=== PATIENT | female | born 1990 | race Caucasian/White ===

== ENCOUNTER 2021-02-22 15:05 | Emergency (ER) | payer OTHER ==
[2021-02-22 15:13] VITALS: BP 115/78; PULSE 108; TEMP 97.2; BMI 36.0
[2021-02-22 16:58] LABS: HCG,QUALITATIVE URINE Positive
[2021-02-22 17:05] LABS: URINE APPEARANCE Clear; URINE BILIRUBIN Negative (NEGATIVE); URINE COLOR Yellow; URINE GLUCOSE (UA) Negative (NEGATIVE); URINE KETONE Negative (NEGATIVE); URINE LEUK ESTERASE 1+ (NEGATIVE); URINE NITRITE Negative (NEGATIVE); URINE PROTEIN Negative (NEGATIVE); URINE UROBILINOGEN 0.2 mg/dL (0.2-1.0)
[2021-02-22 17:07] LABS: CALCIUM 8.8 mg/dL (8.5-10.1)
[2021-02-22 17:08] LABS: ALBUMIN 3.8 g/dl (3.4-5.0)
[2021-02-22 17:10] LABS: BASO % 0.3 % (0-2.0); EOS % 0.5 % (0-4.5); HEMATOCRIT 38.6 % (32.4-45.2); HEMOGLOBIN 12.9 GM/dL (10.7-15.3); LYMPH % 26.1 % (8-40); MCH 30.6 pg (25.7-33.7); MCHC 33.4 g/dl (32.0-36.0); MEAN CELL VOLUME 91.6 fl (80-96); MEAN PLT VOLUME 9.4 fl (7.5-11.1); MONO % 12.4 % (3.8-10.2); NEUT % 60.7 % (42.8-82.8); PLATELET COUNT 249 10^3/uL (134-434); RBC 4.21 M/mm3 (3.60-5.2); RDW 14.2 % (11.6-15.6); WHITE BLOOD COUNT 6.7 K/mm3 (4.0-10.0)
[2021-02-22 17:11] LABS: CREATININE 0.7 mg/dL (0.55-1.3)
[2021-02-22 17:12] LABS: BILIRUBIN,TOTAL 0.3 mg/dL (0.2-1); TOT PROT 8.1 g/dl (6.4-8.2)
[2021-02-22 18:03] LABS: URINE BACTERIA MODERATE /hpf (NEGATIVE); URINE RBC 0-3 /hpf (0-4)
[2021-02-22 18:59] LABS: INR 1.07 (0.83-1.09); PROTHROMBIN TIME (PATIENT) 13.1 SEC (9.7-13.0)
[2021-02-22 19:02] LABS: ACTIVATED PTT 28.6 SECONDS (25.2-36.5)
== END 2021-02-22 19:37 | disposition left against medical advice (07) ==
LOC: JER 15:05
DX: R10.2 Pelvic and perineal pain (principal); M79.652 Pain in left thigh; O00.80 Other ectopic pregnancy without intrauterine pregnancy
CPT/HCPCS: 36415; 76817-TC; 80053; 81003; 83690; 84702; 84703; 85025; 85610; 85730; 86850; 86900; 86901; 87086; 99284-25; C9803; U0003; U0005

== ENCOUNTER 2021-02-24 17:31 | Emergency (ER) | payer OTHER ==
[2021-02-24 17:36] VITALS: BP 110/80; PULSE 93; TEMP 98.2; BMI 36.0
[2021-02-24] MEDS ORDERED: METHOTREXATE SODIUM/PF 25 MG/ML VIAL IM ONE (20:33)
== END 2021-02-24 22:08 | disposition home or self-care (01) ==
LOC: JERFT 17:31
PROC: 3E033GC Introduction of Other Therapeutic Substance into Peripheral Vein, Percutaneous Approach (ICD-10-PCS; principal; 2021-02-24)
DX: O00.90 Unspecified ectopic pregnancy without intrauterine pregnancy (principal)
CPT/HCPCS: 36415; 76817-TC; 84702; 99284-25; J9260

== ENCOUNTER 2021-02-27 18:49 | Emergency (ER) | payer OTHER ==
[2021-02-27 18:54] VITALS: BP 109/74; PULSE 107; TEMP 97.9; BMI 36.0
== END 2021-02-28 | disposition home or self-care (01) ==
LOC: JER 18:49
DX: O00.102 Left tubal pregnancy without intrauterine pregnancy (principal)
CPT/HCPCS: 36415; 76817-TC; 84702; 99284-25

== ENCOUNTER 2021-03-04 12:31 | Emergency (ER) | payer OTHER ==
[2021-03-04 12:42] VITALS: TEMP 97.6; BMI 36.0
[2021-03-04] MEDS ORDERED: KETOROLAC TROMETHAMINE 30 MG/1 ML VIAL IM ONE (13:21)
[2021-03-04] MEDS ORDERED: KETOROLAC TROMETHAMINE 30 MG/1 ML VIAL ONE (13:30)
[2021-03-04 13:36] LABS: BASO % 0.4 % (0-2.0); EOS % 0.4 % (0-4.5); HEMATOCRIT 34.7 % (32.4-45.2); LYMPH % 28.1 % (8-40); MCH 31.3 pg (25.7-33.7); MCHC 34.5 g/dl (32.0-36.0); MEAN CELL VOLUME 90.7 fl (80-96); MEAN PLT VOLUME 9.3 fl (7.5-11.1); MONO % 11.6 % (3.8-10.2); NEUT % 59.5 % (42.8-82.8); PLATELET COUNT 266 10^3/uL (134-434); RBC 3.82 M/mm3 (3.60-5.2); RDW 13.9 % (11.6-15.6); WHITE BLOOD COUNT 7.5 K/mm3 (4.0-10.0)
[2021-03-04 14:26] LABS: EPI CELLS >36 /uL (0-25.1); HYALINE CASTS 1 /uL (0-3.1); URINE APPEARANCE CLEAR; URINE BACTERIA 209 /uL (0-1359); URINE BILIRUBIN NEGATIVE (NEGATIVE); URINE COLOR YELLOW; URINE GLUCOSE (UA) NEGATIVE (NEGATIVE); URINE KETONE NEGATIVE (NEGATIVE); URINE LEUK ESTERASE 1+ (NEGATIVE); URINE NITRITE NEGATIVE (NEGATIVE); URINE PROTEIN TRACE (NEGATIVE); URINE RBC 1341 /uL (0-23.9); URINE WBC 90 /uL (0-25.8)
== END 2021-03-04 15:45 | disposition home or self-care (01) ==
LOC: JER 12:31
PROC: 3E0233Z Introduction of Anti-inflammatory into Muscle, Percutaneous Approach (ICD-10-PCS; principal; 2021-03-04)
DX: O00.202 Left ovarian pregnancy without intrauterine pregnancy (principal); R10.2 Pelvic and perineal pain
CPT/HCPCS: 36415; 76817-TC; 81003; 84702; 85025; 87086; 99284-25

== ENCOUNTER 2021-05-29 03:21 | Emergency (ER) | payer OTHER ==
[2021-05-29] MEDS ORDERED: ACETAMINOPHEN 1000 MG/100 ML VIAL IVPB ONE (03:54)
[2021-05-29 03:57] VITALS: BMI 37.4
[2021-05-29] MEDS ORDERED: ACETAMINOPHEN INJECTION 100 ML IVPB ONE (04:01)
[2021-05-29] MEDS ORDERED: SODIUM CHLORIDE 0.9% 500 ML INFUS.BAG IV ONE (04:12)
[2021-05-29 04:29] LABS: BASO % 0.5 % (0-2.0); EOS % 0.4 % (0-4.5); HEMOGLOBIN 11.5 GM/dL (10.7-15.3); LYMPH % 20.8 % (8-40); MCHC 34.9 g/dl (32.0-36.0); MEAN CELL VOLUME 91.5 fl (80-96); MEAN PLT VOLUME 9.1 fl (7.5-11.1); MONO % 8.7 % (3.8-10.2); NEUT % 69.6 % (42.8-82.8); PLATELET COUNT 252 10^3/uL (134-434); RBC 3.61 M/mm3 (3.60-5.2); RDW 13.4 % (11.6-15.6); WHITE BLOOD COUNT 9.7 K/mm3 (4.0-10.0)
[2021-05-29 04:36] LABS: INR 1.16 (0.83-1.09); PROTHROMBIN TIME (PATIENT) 13.6 SEC (9.7-13.0)
[2021-05-29 04:39] LABS: ACTIVATED PTT 27.5 SECONDS (25.2-36.5)
[2021-05-29 04:50] LABS: CHLORIDE 104 mmol/L (98-107); SODIUM 137 mmol/L (136-145)
[2021-05-29 04:52] LABS: CALCIUM 9.1 mg/dL (8.5-10.1)
[2021-05-29 04:53] LABS: ALBUMIN 3.2 g/dl (3.4-5.0); ANION GAP 7 MMOL/L (8-16); BLOOD UREA NITROGEN 7.9 mg/dL (7-18); CO2 26 mmol/L (21-32); GLUCOSE,RANDOM 130 mg/dL (74-106)
[2021-05-29 04:56] LABS: CREATININE 0.7 mg/dL (0.55-1.3); SGOT/AST 22 U/L (15-37); SGPT/ALT 27 U/L (13-61)
[2021-05-29 04:57] LABS: BILIRUBIN,TOTAL 0.6 mg/dL (0.2-1); TOT PROT 7.4 g/dl (6.4-8.2)
[2021-05-29 04:59] LABS: ALK PHOS 88 U/L (45-117)
[2021-05-29] MEDS ORDERED: METHOTREXATE SODIUM/PF 25 MG/ML VIAL IM ONE (06:21)
[2021-05-29 07:25] VITALS: TEMP 98.4
[2021-05-29 08:12] LABS: EPI CELLS 12 /uL (0-25.1); HYALINE CASTS 1 /uL (0-3.1); PH,URINE 6.5 (5.0-8.0); URINE APPEARANCE CLEAR; URINE BACTERIA 22 /uL (0-1359); URINE BILIRUBIN NEGATIVE (NEGATIVE); URINE COLOR YELLOW; URINE GLUCOSE (UA) NEGATIVE (NEGATIVE); URINE KETONE NEGATIVE (NEGATIVE); URINE LEUK ESTERASE NEGATIVE (NEGATIVE); URINE NITRITE NEGATIVE (NEGATIVE); URINE PROTEIN NEGATIVE (NEGATIVE); URINE RBC 74 /uL (0-23.9); URINE UROBILINOGEN 0.2 mg/dL (0.2-1.0); URINE WBC 4 /uL (0-25.8)
[2021-05-29] MEDS ORDERED: KETOROLAC TROMETHAMINE 30 MG/1 ML VIAL IVPUSH ONE (08:27)
[2021-05-29] MEDS ORDERED: KETOROLAC TROMETHAMINE 30 MG/1 ML VIAL ONE (08:30)
[2021-05-29 08:59] VITALS: BP 102/63; PULSE 86
== END 2021-05-29 08:45 | disposition home or self-care (01) ==
LOC: JER 03:21
PROC: 3E023GC Introduction of Other Therapeutic Substance into Muscle, Percutaneous Approach (ICD-10-PCS; principal; 2021-05-29)
PROC: 3E033GC Introduction of Other Therapeutic Substance into Peripheral Vein, Percutaneous Approach (ICD-10-PCS; principal; 2021-05-29)
DX: O00.90 Unspecified ectopic pregnancy without intrauterine pregnancy (principal); Z3A.01 Less than 8 weeks gestation of pregnancy
CPT/HCPCS: 36415; 76830-TC; 80053; 81003; 82550; 83605; 84484; 84702; 85025; 85610; 85730; 86850; 86900; 86901; 87086; 99291; C9803; J0131; J9260; U0003; U0005

== ENCOUNTER 2021-12-18 16:59 | Emergency (ER) | payer OTHER ==
[2021-12-18 17:15] VITALS: BP 124/85; PULSE 104; TEMP 98.3; BMI 31.4
[2021-12-18] MEDS ORDERED: BACITRACIN 15 GM TUBE TOPICAL OINTMENT ONE (18:11)
== END 2021-12-18 18:20 | disposition home or self-care (01) ==
LOC: JER 16:59
DX: T81.31XA Disruption of external operation (surgical) wound, not elsewhere classified, initial encounter (principal)
CPT/HCPCS: 99283-25

== ENCOUNTER 2022-08-31 07:54 | Inpatient (IN) | payer OTHER ==
[2022-08-31 08:28] VITALS: BMI 31.3
[2022-08-31 10:13] LABS: BASO % 0.4 % (0-2.0); EOS % 0.1 % (0-4.5); HEMATOCRIT 36.7 % (32.4-45.2); LYMPH % 11.1 % (8-40); MCH 29.7 pg (25.7-33.7); MCHC 32.7 g/dl (32.0-36.0); MEAN PLT VOLUME 9.6 fl (7.5-11.1); MONO % 8.2 % (3.8-10.2); NEUT % 80.2 % (42.8-82.8); PLATELET COUNT 278 10^3/uL (134-434); RBC 4.03 M/mm3 (3.60-5.2); RDW 13.5 % (11.6-15.6); WHITE BLOOD COUNT 12.1 K/mm3 (4.0-10.0)
[2022-08-31 10:19] LABS: EPI CELLS >36 /uL (0-25.1); HYALINE CASTS 0 /uL (0-3.1); PH,URINE 6.5 (5.0-8.0); URINE APPEARANCE CLOUDY; URINE BACTERIA 332 /uL (0-1359); URINE BILIRUBIN NEGATIVE (NEGATIVE); URINE COLOR YELLOW; URINE GLUCOSE (UA) NEGATIVE (NEGATIVE); URINE KETONE TRACE (NEGATIVE); URINE LEUK ESTERASE NEGATIVE (NEGATIVE); URINE NITRITE NEGATIVE (NEGATIVE); URINE PROTEIN 1+ (NEGATIVE); URINE WBC 30 /uL (0-25.8)
[2022-08-31 10:45] LABS: PROTHROMBIN TIME (PATIENT) 1.7 SEC (9.7-13.0); URINE RBC 24.2 /uL (0-23.9)
[2022-08-31 10:46] LABS: ACTIVATED PTT 32.4 SECONDS (25.2-36.5); INR 1.1 (0.83-1.09)
[2022-08-31 10:58] LABS: CALCIUM 8.8 mg/dL (8.5-10.1)
[2022-08-31 10:59] LABS: BLOOD UREA NITROGEN 17.6 mg/dL (7-18)
[2022-08-31 11:02] LABS: CREATININE 0.7 mg/dL (0.55-1.3)
[2022-08-31 11:03] LABS: BILIRUBIN,TOTAL 0.7 mg/dL (0.2-1)
[2022-08-31 11:04] LABS: TOT PROT 7.4 g/dl (6.4-8.2)
[2022-08-31] MEDS ORDERED: SODIUM CHLORIDE 1,000 ML IV STA (13:46)
[2022-08-31] MEDS ORDERED: morphine CARPU-JECT 4 MG/1 ML DISP.SYRIN IVPUSH ONE (13:46)
[2022-08-31] MEDS ORDERED: LACTATED RINGERS SOLUTION 1000 ML INFUS.BAG IV ONE (13:47)
[2022-08-31] MEDS ORDERED: ONDANSETRON 4 MG/2 ML VIAL IVPUSH ONE (13:47)
[2022-08-31] MEDS ORDERED: morphine SULFATE 4 MG/ML VIAL ONE (13:48)
[2022-08-31] MEDS ORDERED: ONDANSETRON 4 MG/2 ML VIAL ONE (13:49)
[2022-08-31] MEDS ORDERED: PROPOFOL 20 ML ONE (15:21)
[2022-08-31] MEDS ORDERED: MIDAZOLAM HCL 2 MG/2 ML SINGLE DOSE VIAL ONE (15:22)
[2022-08-31] MEDS ORDERED: SUCCINYLCHOLINE CHLORIDE 200 MG/10 ML SYRINGE ONE (15:22)
[2022-08-31] MEDS ORDERED: ceFAZolin SODIUM 1 GM VIAL IVPB ONE (15:45)
[2022-08-31] MEDS ORDERED: ACETAMINOPHEN INJECTION 100 ML IVPB ONE (15:57)
[2022-08-31] MEDS ORDERED: ROCURONIUM BROMIDE 50 MG/5 ML SYRINGE ONE (16:22)
[2022-08-31] MEDS ORDERED: NEOSTIGMINE METHYLSULFATE 0.5 MG/1 ML - 10 ML MDV ONE (17:03)
[2022-08-31] MEDS ORDERED: ONDANSETRON 4 MG/2 ML VIAL IVPUSH PRN ×2 (17:07→17:38)
[2022-08-31] MEDS ORDERED: IBUPROFEN 800 MG/8 ML IJ IVPB PRN (17:07)
[2022-08-31] MEDS ORDERED: oxyCODONE HCL 5 MG TABLET PO PRN ×2 (17:07→17:14)
[2022-08-31] MEDS ORDERED: IBUPROFEN 600 MG TABLET (FP) PO PRN (17:07)
[2022-08-31] MEDS ORDERED: ELECTROLYTE-148 SOLN 1,000 ML IV SCH (17:15)
[2022-08-31] MEDS ORDERED: LACTATED RINGERS SOLUTION 1,000 ML IV SCH (17:45)
[2022-08-31] MEDS ORDERED: CEFAZOLIN 2 GM in DEXTROSE 5%-WATER - 100 ML IVPB SCH (18:00)
[2022-08-31] MEDS: CEFAZOLIN 2 GM in DEXTROSE 5%-WATER - 100 ML IVPB SCH (23:29)
[2022-09-01] MEDS ORDERED: CEFAZOLIN SODIUM 2 GM in DEXTROSE 5%-WATER 100 ML IVPB SCH (08:45)
[2022-09-01] MEDS: ENOXAPARIN NA (PORCINE) 40 MG/0.4 ML DISP.SYRIN SQ SCH (10:17)
[2022-09-01 10:41] LABS: BASO % 0.3 % (0-2.0); HEMATOCRIT 31.2 % (32.4-45.2); HEMOGLOBIN 10.4 GM/dL (10.7-15.3); LYMPH % 11.9 % (8-40); MCH 30.5 pg (25.7-33.7); MCHC 33.5 g/dl (32.0-36.0); MEAN CELL VOLUME 91.1 fl (80-96); MEAN PLT VOLUME 9.6 fl (7.5-11.1); MONO % 11.5 % (3.8-10.2); NEUT % 76.3 % (42.8-82.8); PLATELET COUNT 259 10^3/uL (134-434); RBC 3.42 M/mm3 (3.60-5.2)
[2022-09-01 10:48] LABS: CALCIUM 7.8 mg/dL (8.5-10.1)
[2022-09-01 10:49] LABS: BLOOD UREA NITROGEN 7.5 mg/dL (7-18)
[2022-09-01 10:52] LABS: CREATININE 0.7 mg/dL (0.55-1.3)
[2022-09-01] MEDS: CEFAZOLIN 2 GM in DEXTROSE 5%-WATER - 100 ML IVPB SCH (18:56)
[2022-09-02 09:03] LABS: BASO % 0.6 % (0-2.0); EOS % 0.3 % (0-4.5); HEMATOCRIT 29.4 % (32.4-45.2); HEMOGLOBIN 9.9 GM/dL (10.7-15.3); LYMPH % 29.6 % (8-40); MCH 30.6 pg (25.7-33.7); MCHC 33.8 g/dl (32.0-36.0); MEAN CELL VOLUME 90.5 fl (80-96); MEAN PLT VOLUME 9.8 fl (7.5-11.1); NEUT % 54.5 % (42.8-82.8); PLATELET COUNT 221 10^3/uL (134-434); RBC 3.25 M/mm3 (3.60-5.2); RDW 14.3 % (11.6-15.6); WHITE BLOOD COUNT 8.8 K/mm3 (4.0-10.0)
[2022-09-02 09:05] VITALS: BP 92/57; PULSE 84; RESP 16; TEMP 98.3
[2022-09-02] MEDS: ENOXAPARIN NA (PORCINE) 40 MG/0.4 ML DISP.SYRIN SQ SCH (09:41)
== END 2022-09-02 11:11 | disposition home or self-care (01) | DRG 545 ==
LOC: JER 07:54 → JERBED 13:18 → J3W 19:42
PROVIDERS: ADMIT Obstetrics & Gynecology; ATTEND Obstetrics & Gynecology
PROC: 0UT60ZZ Resection of Left Fallopian Tube, Open Approach (ICD-10-PCS; principal; 2022-08-31 15:00)
DX: O00.102 Left tubal pregnancy without intrauterine pregnancy (principal); K66.1 Hemoperitoneum; Z53.31 Laparoscopic surgical procedure converted to open procedure
CPT/HCPCS: 36415; 74018-TC-FY; 76817-TC; 80048; 80053; 81003; 84702; 85025; 85610; 85730; 86850; 86900; 86901; 87086; 88305-TC; 93005; 93010; 94010; 94760; 99285-25; C9803-CS; U0003; U0005